=== PATIENT | female | born 1935 | race Caucasian/White ===

== ENCOUNTER 2017-10-05 17:05 | Emergency (ER) | payer OTHER, MEDICARE ==
--- NOTE | 2017-10-05 17:08 | PDOC ---
History of Present Illness - General History Source: Patient Exam Limitations: No Limitations - History of Present Illness Initial Comments: 10/05/17 17:51 The patient is a 81-year-old female, with a significant past medical history of CAD (on baby aspirin), who presents to the ED with left 3rd and 4th finger lacerations. As per daughter, the patient was about to get into the car when the door slammed on her left hand. The patient sustained 1 laceration to the her 3rd digit and 2 lacerations to her 4th digit. Patient is left hand dominant. The car door also hit the patients right moses, but she denies any bleeding. Patients tetanus is not up-to-date. The patient denies any loss of consciousness or any other injuries or symptoms. Allergies: NKA <Vandana Albarran - Last Filed: 10/05/17 18:31> - General History Source: Patient Exam Limitations: No Limitations <Florecita Pizarro - Last Filed: 10/08/17 07:43> - General Chief Complaint: Injury Stated Complaint: LEFT 3RD AND 4TH FINGERS INJURED Time Seen by Provider: 10/05/17 17:07 Past History <Vandana Albarran - Last Filed: 10/05/17 18:31> <Florecita Pizarro - Last Filed: 10/08/17 07:43> - Past Medical History Allergies/Adverse Reactions: Allergies Allergy/AdvReac Type Severity Reaction Status Date / Time No Known Allergies Allergy Unverified 10/05/17 17:18 Home Medications: Ambulatory Orders Aspirin [Aspirin EC] 81 mg PO DAILY 10/05/17 Cephalexin [Keflex] 250 mg PO Q6H #20 capsule 10/05/17 Escitalopram Oxalate [Lexapro -] 10 mg PO DAILY 10/05/17 Metoprolol Succinate [Toprol Xl] mg PO BID 10/05/17 Pravastatin Sodium 20 mg PO HS 10/05/17 Review of Systems - Review of Systems Able to Perform ROS?: Yes Comments:: 10/05/17 17:52 GENERAL/CONSTITUTIONAL: No fever or chills. No weakness. HEAD, EYES, EARS, NOSE AND THROAT: No change in vision. No ear pain or discharge. No sore throat. CARDIOVASCULAR: No chest pain or shortness of breath. RESPIRATORY: No cough, wheezing, or hemoptysis. GASTROINTESTINAL: No nausea, vomiting, diarrhea or constipation. GENITOURINARY: No dysuria, frequency, or change in urination. MUSCULOSKELETAL: No joint or muscle swelling or pain. No neck or back pain. SKIN: (+)3rd and 4th finger lacerations, bruise to right moses. NEUROLOGIC: No headache, vertigo, loss of consciousness, or change in strength/ sensation. ENDOCRINE: No increased thirst. No abnormal weight change. HEMATOLOGIC/LYMPHATIC: No anemia, easy bleeding, or history of blood clots. ALLERGIC/IMMUNOLOGIC: No hives or skin allergy. <Vandana Albarran - Last Filed: 10/05/17 18:31> *Physical Exam - Vital Signs Last Vital Signs Temp Pulse Resp BP Pulse Ox 98.3 F 66 18 172/101 100 10/05/17 17:05 10/05/17 17:05 10/05/17 17:05 10/05/17 17:05 10/05/17 17:05 - Physical Exam Comments: 10/05/17 17:54 GENERAL: Alert and oriented. Answers questions appropriately. The patient is in no acute distress. HEAD: Normal with no signs of trauma. EYES: PERRLA, EOMI, sclera anicteric, conjunctiva clear. ENT: Ears normal, nares patent, oropharynx clear without exudates. Moist mucous membranes. NECK: Normal range of motion, supple without lymphadenopathy, JVD, or masses. LUNGS: Breath sounds equal, clear to auscultation bilaterally. No wheezes, and no crackles. HEART:Regular rate and rhythm, normal S1 and S2 without murmur, rub or gallop. ABDOMEN: Soft, nontender, normoactive bowel sounds. No guarding, no rebound. No masses palpable. EXTREMITIES: Normal range of motion, no edema. No clubbing or cyanosis. NEUROLOGICAL: Cranial nerves II through XII grossly intact. Normal speech. No focal neurological deficits. MUSCULOSKELETAL: Back non-tender to palpation, no CVA tenderness SKIN: (+)Patient has 1 laceration to her left 3rd finger and 2 lacerations to her left 4th finger; Bruise noted to patient's right moses with no active bleeding. Warm, Dry, normal turgor. <Vandana Albarran - Last Filed: 10/05/17 18:31> Procedures - Laceration/Wound Repair Left Finger 3rd digit Wound Length: to 2.5 cm Wound Explored: clean Wound's Depth, Shape: superficial, linear Irrigated w/ Saline: Yes Betadine Prep: No (CHlorhexidine) Anesthesia: 1% Lidocaine Amount of Anesthetic (ccs): 1 Wound Debrided: minimal Wound Repaired With: Sutures Suture Size/Type: 4:0 Number of Sutures: 2 (each laceration) Sterile Dressing Applied: Yes <Florecita Pizarro - Last Filed: 10/08/17 07:43> ED Treatment Course - RADIOLOGY Radiology Studies Ordered: 10/05/17 18:31 Left Finger(s) X-Ray was reviewed by Dr. Pizarro and over-read by Radiology. Impression: No acute left third and fourth digit pathology. - Medications Given in the ED: ED Medications Discontinued Medications Generic Name Dose Route Start Last Admin Trade Name Freq PRN Reason Stop Dose Admin Acetaminophen 650 mg 10/05/17 17:30 10/05/17 17:40 Tylenol - PO 10/05/17 17:31 650 mg ONCE ONE Administration <Vandana Albarran - Last Filed: 10/05/17 18:31> Medical Decision Making - Medical Decision Making 10/05/17 17:33 [facility]HD F s/p crush injury of the left hand with 3 lacerations of the fingers no obvious deformities Will do Xray Update tetanus Suture repair Pt sent to xray without daughter Daughter is very emotional, tearful, anxious 10/05/17 18:22 Xray demonstrates no fracture Wound copiously irrigated 3rd digit - 2 sutures applies 4th digit overlying knuckle - 2 sutures appied 4th digit medial laceration - superficial, steri stripped Will discharge on abx - Keflex Follow up with PMD for suture removal Follow up with hand for pain at the 3rd digit Keflex prescription had to be sent 3 times to 3 different pharmacies Finally sent to [facility] <Florecita Pizarro - Last Filed: 10/08/17 07:43> *DC/Admit/Observation/Transfer - Attestations Scribe Attestion: 10/05/17 17:57 Documentation prepared by Vandana Albarran, acting as biomedical field service engineer for Florecita Pizarro MD. <Vandana Albarran - Last Filed: 10/05/17 18:31> - Discharge Dispostion Decision to Admit order: No <Florecita Pizarro - Last Filed: 10/08/17 07:43> Diagnosis at time of Disposition: Laceration of hand Qualifiers: Encounter type: initial encounter Foreign body presence: without foreign body Laterality: left Qualified Code(s): S61.412A - Laceration without foreign body of left hand, initial encounter - Discharge Dispostion Disposition: HOME Condition at time of disposition: Stable - Prescriptions Prescriptions: Cephalexin [Keflex] 250 mg PO Q6H #20 capsule - Patient Instructions Printed Discharge Instructions: DI for Laceration Repair, DI for Laceration Repair -- Simple Additional Instructions: Thank you for coming in to the ER today Suture Care for a normal sutured wound: o Don't get wet for 48 hours. o After 48 hours wash with koko soap and water o Apply bacitracin or any antibiotic ointment after washing. o Change wound dressing when wet or soiled. o A dressing is no longer needed when edge of wound closed (usually 48 hours). o you can leave steri strip on laceration, it will fall off with time and a scab will form EXCEPTION: dressing needed to prevent sutures from catching on clothing. Return to your primary care physician, urgent care or the ER for suture removal in 10 days Return to the ER if you notice your skin is warm, hot, if you have drainage, severe pain Please take antibiotic as prescribed
[2017-10-05 17:17] VITALS: BP 172/101; PULSE 66; TEMP 98.3; BMI 22.6
[2017-10-05] MEDS ORDERED: ACETAMINOPHEN 325 MG TABLET (FP) ONE (17:23)
[2017-10-05] MEDS ORDERED: ACETAMINOPHEN 325 MG TABLET (FP) PO ONE (17:30)
== END 2017-10-05 18:40 | disposition home or self-care (01) ==
LOC: FER 17:05
PROC: 0HQGXZZ Repair Left Hand Skin, External Approach (ICD-10-PCS; principal; 2017-10-05)
DX: S61.412A Laceration without foreign body of left hand, initial encounter (principal); W23.0XXA Caught, crushed, jammed, or pinched between moving objects, initial encounter; Y93.89 Activity, other specified; Y92.9 Unspecified place or not applicable; I25.10 Atherosclerotic heart disease of native coronary artery without angina pectoris
CPT/HCPCS: 73140-TC-LT-FY; 99283-25